=== PATIENT | female | born 2000 | race Two or more races ===

== ENCOUNTER 2024-10-13 15:09 | Emergency (ER) | payer MEDICAID, SELFPAY ==
[2024-10-13 15:10] VITALS: BMI 33.1
[2024-10-13 15:18] VITALS: BP 113/72; PULSE 80; RESP 18; TEMP 36.9; O2SAT 99
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
== END 2024-10-13 20:26 | disposition home or self-care (01) ==
PROVIDERS: Emergency Provider Emergency Medicine
DX: O9A.212 Injury, poisoning and certain other consequences of external causes complicating pregnancy, second trimester (principal); S39.93XA Unspecified injury of pelvis, initial encounter; V89.2XXA Person injured in unspecified motor-vehicle accident, traffic, initial encounter; Z3A.17 17 weeks gestation of pregnancy
CPT/HCPCS: 76815; 99284